=== PATIENT | female | born 1955 | race Caucasian/White ===

== ENCOUNTER 2020-05-03 13:22 | Emergency (ER) | payer OTHER ==
[2020-05-03] MEDS ORDERED: BAMLANIVIMAB 700 MG in SODIUM CHLORIDE 250 ML IVPB ONE (13:33)
[2020-05-03 13:48] VITALS: BMI 28.5
[2020-05-03 16:37] VITALS: TEMP 98
[2020-05-03 18:30] VITALS: BP 179/57; PULSE 72
== END 2020-05-03 18:52 | disposition home or self-care (01) ==
LOC: JCOVINFU 13:22
DX: Z11.52 Encounter for screening for COVID-19 (principal)
CPT/HCPCS: 99284-25; M0239; Q0239

== ENCOUNTER 2021-04-07 13:33 | Emergency (ER) | payer OTHER ==
[2021-04-07 13:45] VITALS: BMI 31.7
[2021-04-07] MEDS ORDERED: SOTROVIMAB 500 MG in SODIUM CHLORIDE 100 ML IVPB ONE (13:53)
[2021-04-07] MEDS ORDERED: INSULIN (NOVOLOG) ASPART 100 UNITS/ML 10ML VIAL SQ ONE (14:17)
[2021-04-07] MEDS ORDERED: INSULIN REGULAR HUMAN 100 UNITS/ML *VIAL ONE (15:12)
[2021-04-07 15:22] VITALS: TEMP 98.8
[2021-04-07 15:35] LABS: CALCIUM 8.8 mg/dL (8.5-10.1)
[2021-04-07 15:36] LABS: ALBUMIN 3.5 g/dl (3.4-5.0); BLOOD UREA NITROGEN 14.3 mg/dL (7-18)
[2021-04-07 15:39] LABS: CREATININE 0.7 mg/dL (0.55-1.3)
[2021-04-07 15:40] LABS: BILIRUBIN,TOTAL 0.6 mg/dL (0.2-1); TOT PROT 7.8 g/dl (6.4-8.2)
[2021-04-07] MEDS ORDERED: SODIUM CHLORIDE 0.9% 500 ML INFUS.BAG IV ONE (16:32)
[2021-04-07] MEDS ORDERED: Insulin (LOG) Aspart 100 UNITS/ML VIAL SQ STA (18:16)
[2021-04-07 19:04] VITALS: BP 175/73; PULSE 64
[2021-04-08] MEDS ORDERED: Insulin (LOG) Aspart 100 UNITS/ML VIAL SQ ONE (18:13)
== END 2021-04-07 19:46 | disposition home or self-care (01) ==
LOC: JCOVINFU 13:33
DX: U07.1 COVID-19 (principal)
CPT/HCPCS: 36415; 80053; 82962; 99284-25; M0247; Q0247